=== PATIENT | female | born 1985 | race Caucasian/White ===

== ENCOUNTER 2017-04-30 07:18 | Emergency (ER) | payer MEDICAID ==
[~2017-04-30] VITALS: Ht 172.7 cm; Wt 116.8 kg
[2017-04-30 07:21] VITALS: BP 153/93
--- NOTE | 2017-04-30 07:26 | NUR ---
PT TAKEN TO BED 1.
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
[2017-04-30] MEDS ORDERED: KETOROLAC 60 MG/2 ML VIAL IM ONE (07:50)
[2017-04-30] MEDS ORDERED: METHOCARBAMOL 500 MG TAB PO SCH (07:50)
[2017-04-30 08:27] VITALS: BP 143/87
--- NOTE | 2017-04-30 08:27 | NUR ---
Patient discharged with v/s stable. Written and verbal after care instructions given and explained. Patient alert, oriented and verbalized understanding of instructions. Ambulatory with steady gait. All questions addressed prior to discharge. ID band removed. Patient advised to follow up with PMD. Rx of Robaxin, Lidoderm, and Motrin given. Patient educated on indication of medication including possible reaction and side effects. Opportunity to ask questions provided and answered.
== END 2017-04-30 08:27 | disposition home or self-care (01) ==
LOC: MED 07:18
DX: M54.5 Low back pain (principal)
CPT/HCPCS: 81002; 81025; 96372; 99283; J1885